=== PATIENT | male | born 1960 ===

== ENCOUNTER 2019-03-08 12:02 | Emergency (ER) | payer OTHER ==
[2019-03-08] MEDS ORDERED: Naproxen 550 mg Tab PO STA (12:14)
[2019-03-08] MEDS ORDERED: Naproxen 550 mg Tab PO ONE (12:19)
[2019-03-08 12:36] VITALS: BP 146/94; PULSE 79; RESP 18; TEMP 98.7; O2SAT 96
[2019-03-08] MEDS ORDERED: Lidocaine 5% Patch TD STA (13:24)
--- NOTE | 2019-03-08 13:26 | C.PDOC ---
History Of Present Illness 58 year old male presents to the ED complaining of right ankle and right buttock pain status post fall. States he tripped and fell on uneven pavement while working for the [employer] today. Reports right buttock pain radiates down to his right leg. Denies history of sciatica, LOC, head injury, weakness, numbness or tingling. Chief Complaint (Nursing): Lower Extremity Problem/Injury History Per: Patient History/Exam Limitations: no limitations Onset/Duration Of Symptoms: Hrs Current Symptoms Are (Timing): Still Present - Ankle/Foot Description Of Injury: Fell Past Medical History Reviewed: Historical Data, Nursing Documentation, Vital Signs Primary Care Provider: FAMILY PROVIDER,NO - Medical History PMH: No Chronic Diseases Surgical History: No Surg Hx Family History: States: No Known Family Hx - Social History Hx Alcohol Use: No Hx Substance Use: No - Immunization History Hx Tetanus Toxoid Vaccination: No Hx Influenza Vaccination: No Hx Pneumococcal Vaccination: No Review Of Systems Musculoskeletal: Positive for: Other (right ankle pain, right buttock pain ) Neurological: Negative for: Weakness, Numbness, Other (tingling ) Physical Exam - Physical Exam Appears: Non-toxic, No Acute Distress Skin: Warm, Dry, No Rash Head: Normacephalic Eye(s): bilateral: PERRL, EOMI Nose: Normal Oral Mucosa: Moist Neck: Supple Chest: Symmetrical Cardiovascular: Rhythm Regular Respiratory: Normal Breath Sounds, No Accessory Muscle Use Gastrointestinal/Abdominal: Soft, No Tenderness Extremity: No Normal ROM (limited ROM secondary to pain of right ankle ), Tenderness (tender to palpation of right ankle and right sacral ), Capillary Refill (less than 2 sec to right ankle ), Swelling (right ankle ), No Other (ecchymosis, erythema ) Pulses: Left Dorsalis Pedis: Normal, Right Dorsalis Pedis: Normal Neurological/Psych: Oriented x3, Normal Speech Gait: Steady ED Course And Treatment O2 Sat by Pulse Oximetry: 96 (RA) Pulse Ox Interpretation: Normal - Other Rad right ankle X-Ray: Viewed By Me, Read By Radiologist Interpretation: Accession No. : [id number]. Patient Name / ID : MARITZA Andrade / [id number]. Exam Date : 03/08/2019 12:13:53 ( Approved ). Study Comment : Sex / Age : M / 58Y. Creator : Fitz Trinh MD. Dictator : Fitz Trinh MD. Completions Manager : Database Marketing Manager : Fitz Trinh MD. Approver2 : Report Date : 03/08/2019 14:48:46. My Comment : . Date of service: 03/08/2019. PROCEDURE: Right Ankle Radiographs. HISTORY: Status post fall. COMPARISON: None available. TECHNIQUE: 3 views obtained. FINDINGS: BONES: Normal. No fracture. Talar dome intact. JOINTS: Ankle mortise maintained however there is mild degenerative osteoarthritis. SOFT TISSUES: Mild soft tissue swelling over the lateral and to a lesser degree malleoli. OTHER FINDINGS: None. IMPRESSION: No evidence of acute displaced fracture nor dislocation. Mild degenerative osteoarthritis. Mild soft tissue swelling over the left lateral and to a lesser degree medial malleoli. LS spine X-Ray: Viewed By Me, Read By Radiologist Interpretation: Accession No. : [id number]. Patient Name / ID : MARITZA Andrade / [id number]. Exam Date : 03/08/2019 12:28:30 ( Approved ). Study Comment : Sex / Age : M / 58Y. Creator : Fitz Trinh MD. Dictator : Fitz Trinh MD. Completions Manager : Database Marketing Manager : Fitz Trinh MD. Approver2 : Report Date : 03/08/2019 14:47:23. My Comment : . Date of service: 03/08/2019. PROCEDURE: Radiographs of the Lumbar Spine. HISTORY: Status post fall. COMPARISON: No prior. TECHNIQUE: 5 views obtained. FINDINGS: BONES: No acute compression fractures nor retropulsed fragments. Vertebral bodies exhibit relatively normal stature. Vertebral bodies and facets normally aligned. DISC SPACES: There appears to be mild posterior disc space narrowing L4-L5, as L5-S1 and less so the L3-L4 levels.. The remaining disc space heights are relatively maintained. Small marginal anterolateral osteophytes are seen at several levels. The facet joints are hypertrophic L5-S1 through the L3-L4 levels in decreasing order of severity. OTHER FINDINGS: None. IMPRESSION: No acute fractures. Mild multilevel degenerative spondylosis as detailed above. Medical Decision Making Medical Decision Making: Plan - Lumbar Spine XR and Right ankle XR ordered and reviewed with patient - Lidoderm patch applied - Naproxen 550mg PO given Patient educated on the RICE method. Instructed to follow up with PMD. Patient verbalizes understanding and is in agreement with plan. Patient is stable for discharge. Disposition Counseled Patient/Family Regarding: Studies Performed, Diagnosis, Need For Followup, Rx Given - Disposition Referrals: Harpreet Loza MD [Staff Provider] - Disposition: HOME/ ROUTINE Disposition Time: 13:26 Condition: IMPROVED Additional Instructions: continue meds as prescribed rest, ice, compression, and elevation follow up with PMD in 1-2 days Return to ED if symptoms worsen Prescriptions: Cyclobenzaprine [Flexeril] 10 mg PO TID PRN #6 tab PRN Reason: Muscle Spasm Lidocaine 5% [Lidoderm] 1 ea TD DAILY PRN #30 patch PRN Reason: Pain, Moderate (4-7) Naproxen [Naprosyn] 500 mg PO BID #30 tablet Instructions: Ankle Sprain (DC) Forms: [employer] (Polish), Work Excuse - Clinical Impression Clinical Impression: Right ankle pain, Right ankle sprain - PA / PINSETTER MECHANIC HELPER / Resident Statement MD/DO has reviewed & agrees with the documentation as recorded. - Scribe Statement The provider has reviewed the documentation as recorded by the Mando Rodriguez All medical record entries made by the Scribe were at my direction and personally dictated by me. I have reviewed the chart and agree that the record accurately reflects my personal performance of the history, physical exam, medical decision making, and the department course for this patient. I have also personally directed, reviewed, and agree with the discharge instructions and disposition.
[2019-03-08] MEDS ORDERED: Lidocaine 5% Patch TD ONE (13:30)
--- NOTE | 2019-03-08 14:51 | RAD ---
Date of service: 03/08/2019 PROCEDURE: Radiographs of the Lumbar Spine. HISTORY: Status post fall COMPARISON: No prior TECHNIQUE: 5 views obtained. FINDINGS: BONES: No acute compression fractures nor retropulsed fragments. Vertebral bodies exhibit relatively normal stature. Vertebral bodies and facets normally aligned DISC SPACES: There appears to be mild posterior disc space narrowing L4-L5, as L5-S1 and less so the L3-L4 levels.. The remaining disc space heights are relatively maintained. Small marginal anterolateral osteophytes are seen at several levels. The facet joints are hypertrophic L5-S1 through the L3-L4 levels in decreasing order of severity. OTHER FINDINGS: None. IMPRESSION: No acute fractures. Mild multilevel degenerative spondylosis as detailed above.
--- NOTE | 2019-03-08 14:52 | RAD ---
Date of service: 03/08/2019 PROCEDURE: Right Ankle Radiographs. HISTORY: Status post fall COMPARISON: None available. TECHNIQUE: 3 views obtained. FINDINGS: BONES: Normal. No fracture. Talar dome intact JOINTS: Ankle mortise maintained however there is mild degenerative osteoarthritis. SOFT TISSUES: Mild soft tissue swelling over the lateral and to a lesser degree malleoli. OTHER FINDINGS: None. IMPRESSION: No evidence of acute displaced fracture nor dislocation. Mild degenerative osteoarthritis. Mild soft tissue swelling over the left lateral and to a lesser degree medial malleoli.
== END 2019-03-08 13:37 | disposition home or self-care (01) ==
LOC: C.ER 12:02
DX: S93.401A Sprain of unspecified ligament of right ankle, initial encounter (principal); W01.0XXA Fall on same level from slipping, tripping and stumbling without subsequent striking against object, initial encounter; Y92.480 Sidewalk as the place of occurrence of the external cause; M25.571 Pain in right ankle and joints of right foot